=== PATIENT | female | born 1990 | race Caucasian/White ===

== ENCOUNTER → 2019-01-07 | Outpatient (CLI) | payer BC ==
[~2019-01-07] MED LIST: ALBU8.5H8 INH; BIOT1TAB2 PO; CHOL200024 PO; DULO60CA7 PO; GINS100C3 PO; HYDR25TA11 PO; KERATIN PO; LACT1CAP35 PO; LAMO100T5 PO; LAMO150T3 PO; MAGN250T8 PO; OMEG-14 PO; PROM25TA10 PO; PROP40TA PO; RANI150T23 PO; TRAZ-137 PO; TURM1POW2 PO; VITA1TAB19 PO; kratom PO
[2019-01-07 11:12] LABS: BASOPHILS # (AUTO) 0.04 x10^3/uL (0-0.1); BASOPHILS % (AUTO) 1 % (0-1); EOSINOPHILS # (AUTO) 0.29 x10^3/uL (0-0.4); EOSINOPHILS % (AUTO) 4 % (1-7); LYMPHOCYTES # (AUTO) 2.52 x10^3/uL (1-3.4); LYMPHOCYTES % (AUTO) 32 % (22-44); MD NO; MEAN CORPUSCULAR HEMOGLOBIN 32.8 pg (27.0-34.8); MEAN CORPUSCULAR HGB CONC 33.6 g/dL (32.4-35.8); MEAN CORPUSCULAR VOLUME 97.8 fL (80-100); MEAN PLATELET VOLUME 8.3 fL (7.4-10.4); MONOCYTES # (AUTO) 0.59 x10^3/uL (0.2-0.8); MONOCYTES % (AUTO) 8 % (2-9); NEUTROPHILS # (AUTO) 4.33 x10^3/uL (1.8-6.8); NEUTROPHILS % (AUTO) 56 % (42-75); PLATELET COUNT 333 x10^3/uL (130-400); RED BLOOD COUNT 4.65 x10^6/uL (3.82-5.3); RED CELL DISTRIBUTION WIDTH 12.4 % (9.6-15.2)
== END | disposition home or self-care (01) ==
LOC: STAR 10:05
PROVIDERS: ATTEND Specialist
DX: N94.5 Secondary dysmenorrhea (principal); N92.0 Excessive and frequent menstruation with regular cycle
CPT/HCPCS: 36415; 84703; 85025

== ENCOUNTER 2019-01-13 07:09 | Day surgery (SDC) | payer BC ==
[~2019-01-13] VITALS: Ht 162.6 cm; Wt 84.5 kg
[~2019-01-13 07:09] MED LIST changes: +BUPIVACAINE/PF 0.25% ONE; +SILVER NITRATE STICK TP ONE
[2019-01-13 07:46] VITALS: BP 116/79
[2019-01-13] MEDS ORDERED: DIAZEPAM 5 MG TABLET PO STA (07:52)
[2019-01-13] MEDS ORDERED: ACETAMINOPHEN 500 MG TABLET PO STA (07:52)
[2019-01-13] MEDS ORDERED: SCOPOLAMINE PATCH, 1.5MG PATCH.TD72 TD STA (07:52)
[2019-01-13] MEDS ORDERED: LACTATED RINGERS 1,000 ML IV SCH (07:53)
[2019-01-13] MEDS ORDERED: LIDOCAINE-MPF 1%, 2ML INFIL ONE (08:00)
[2019-01-13] MEDS ORDERED: FENTANYL PF 250 MCG/5ML ONE (09:24)
[2019-01-13] MEDS ORDERED: MIDAZOLAM 1 MG/ML, 2ML ONE (09:24)
[2019-01-13] MEDS ORDERED: DEXAMETHASONE 4 MG/ML, 1ML ONE (09:33)
[2019-01-13] MEDS ORDERED: KETOROLAC 30 MG/1 ML ONE (09:33)
[2019-01-13] MEDS ORDERED: FENTANYL PF 100 MCG/2ML ONE ×2 (10:19→11:26)
[2019-01-13] MEDS ORDERED: ONDANSETRON 2MG/ML, 2ML ONE (10:29)
[2019-01-13] MEDS ORDERED: SUCCINYLCHOLINE 20 MG/ML, 10ML ONE (10:39)
[2019-01-13] MEDS ORDERED: PROPOFOL 10 MG/ML, 20ML ONE ×3 (10:39)
[2019-01-13] MEDS ORDERED: ROCURONIUM 10MG/ML,5ML ONE (10:39)
[2019-01-13] MEDS ORDERED: EPHEDRINE 50 MG/ML, 1ML IVPush PRN (11:00)
[2019-01-13] MEDS ORDERED: DIAZEPAM 5 MG/ML, 2ML IVPush PRN (11:00)
[2019-01-13] MEDS ORDERED: MORPHINE SULFATE 4 MG/ML, 1ML IVPush PRN (11:00)
[2019-01-13] MEDS ORDERED: OXYcodone 5 MG/5 ML ORAL.SOL UDC PO PRN (11:00)
[2019-01-13] MEDS ORDERED: PROMETHAZINE 12.5 MG SUPP PR PRN (11:00)
[2019-01-13] MEDS ORDERED: ONDANSETRON ODT 8 MG PO PRN (11:00)
[2019-01-13] MEDS ORDERED: LABETALOL 5MG/ML, 20ML IV PRN (11:00)
[2019-01-13] MEDS ORDERED: PROMETHAZINE 25 MG/ML, 1ML IV PRN (11:00)
[2019-01-13] MEDS ORDERED: ONDANSETRON 2MG/ML, 2ML IV PRN (11:00)
[2019-01-13] MEDS ORDERED: hydrALAzine 20 MG/ML, 1ML IV PRN (11:00)
[2019-01-13] MEDS ORDERED: MEPERIDINE/PF 25MG/0.5ML IVPush PRN (11:00)
[2019-01-13] MEDS ORDERED: HALOPERIDOL 5 MG/ML IV PRN (11:00)
[2019-01-13] MEDS ORDERED: MIDAZOLAM 1 MG/ML, 2ML IV PRN (11:00)
[2019-01-13] MEDS ORDERED: HYDROmorphone 2 MG/ML, 1ML IVPush PRN (11:00)
[2019-01-13] MEDS ORDERED: ALBUTEROL SULFATE 2.5 MG/3 ML NPPB PRN (11:00)
[2019-01-13] MEDS ORDERED: MEPERIDINE/PF 25MG/ML,1ML ONE (11:27)
[2019-01-13] MEDS ORDERED: OXYcodone 5 MG/5 ML ORAL.SOL UDC ONE (11:27)
[2019-01-13] MEDS: FENTANYL PF 100 MCG/2ML IV PRN ×2 (11:42→11:55)
[2019-01-13] MEDS ORDERED: IBUPROFEN 600 MG TABLET PO PRN (14:30)
[2019-01-13] MEDS ORDERED: OXYcodone/APAP 5/325MG TABLET PO PRN (14:30)
== END 2019-01-13 16:20 | disposition home or self-care (01) ==
LOC: OUT 07:09
PROVIDERS: ATTEND Specialist
DX: N80.3 Endometriosis of pelvic peritoneum (principal); N92.0 Excessive and frequent menstruation with regular cycle; N94.10 Unspecified dyspareunia; G43.909 Migraine, unspecified, not intractable, without status migrainosus; Z98.890 Other specified postprocedural states; F17.210 Nicotine dependence, cigarettes, uncomplicated
CPT/HCPCS: 58662; J0330; J1100; J1885; J2175; J2250; J2405; J2704; J3010; J3490; J7120